=== PATIENT | male | born 1990 | race Caucasian/White ===

== ENCOUNTER 2021-03-01 23:35 | Emergency (ER) | payer OTHER ==
[2021-03-01 23:45] VITALS: BMI 35.5
[2021-03-02] MEDS ORDERED: DIPHTH,PERTUSS(ACELL),TET 0.5 ML DISP.SYRIN IM ONE ×2 (00:45→00:49)
[2021-03-02] MEDS ORDERED: IBUPROFEN 600 MG TABLET (FP) PO ONE ×2 (00:46→00:49)
[2021-03-02 03:09] VITALS: BP 116/72; PULSE 88; TEMP 98.6
[2021-03-02] MEDS ORDERED: LIDOCAINE HCL 2% (50ML VIAL) INF ONE (05:01)
[2021-03-02] MEDS ORDERED: LIDOCAINE HCL 2% (20ML MULTI-DOSE VIAL) ONE (05:13)
== END 2021-03-02 07:01 | disposition home or self-care (01) ==
LOC: JER 23:35
PROC: 0HQMXZZ Repair Right Foot Skin, External Approach (ICD-10-PCS; principal; 2021-03-01)
PROC: 3E0234Z Introduction of Serum, Toxoid and Vaccine into Muscle, Percutaneous Approach (ICD-10-PCS; 2021-03-01)
DX: S91.114A Laceration without foreign body of right lesser toe(s) without damage to nail, initial encounter (principal)
CPT/HCPCS: 73630-TC-RT-FY; 90471; 90715; 99284-25